=== PATIENT | female | born 1985 | race African-American/Black ===

== ENCOUNTER 2019-07-12 14:18 | Emergency (ER) | payer OTHER ==
[~2019-07-12] VITALS: Ht 162.6 cm; Wt 96.2 kg
[~2019-07-12 14:18] MED LIST: COMPAZINE10 MG PO; IBUPROFEN 600600 M1 PO; KEFLEX500 MG PO; NOHOMEMEDICATIONS; NORCO 5-325 TA1 EACH PO; PENICILLIN VK500 M1 PO; PHENERGAN 25 MG25 M1 PO; VALIUM2 MG PO
[2019-07-12 14:50] LABS: ABSOLUTE NEUTROPHILS 5.7 thou/uL (1.4-8.2); BASOPHILS 0.8 % (0.0-2.0); EOSINOPHILS 1.5 % (0.0-3.0); HEMOGLOBIN 12.4 gm/dL (12.0-15.0); LYMPHOCYTES 38.6 % (24.0-44.0); MCHC 32.7 g/dL (28.0-37.0); MCV 88.7 fL (80.0-100.0); MONOCYTES 9.1 % (1.0-8.0); PLATELET COUNT 296 thou/uL (150-400); RBC 4.28 mil/uL (4.20-5.00); RDW 14.8 % (10.5-14.5); WBC 11.3 thou/uL (4.0-11.0)
[2019-07-12 14:56] LABS: CALCIUM 9.4 mg/dL (8.5-10.1); CREATININE 0.9 mg/dL (0.6-1.0); POTASSIUM 3.7 mmol/L (3.5-5.1)
[2019-07-12 15:02] LABS: ALBUMIN 3.7 g/dL (3.4-5.0); TOTAL BILIRUBIN 0.5 mg/dL (<0.1-1.0); TOTAL PROTEIN 7.3 g/dL (6.4-8.2)
[2019-07-12] MEDS ORDERED: CLOTRIMAZOLE 1%15 G1 TOP (16:28)
[2019-07-12] MEDS ORDERED: BUTALB-APAP-CA1 EACH PO (16:28)
[2019-07-12 16:31] VITALS: BP 98/54
== END 2019-07-12 16:31 | disposition home or self-care (01) ==
LOC: ER 14:18
PROVIDERS: Emergency Medicine
DX: G43.909 Migraine, unspecified, not intractable, without status migrainosus (principal); B35.4 Tinea corporis; F17.210 Nicotine dependence, cigarettes, uncomplicated

== ENCOUNTER 2020-06-04 15:32 | Emergency (ER) | payer OTHER ==
[~2020-06-04] VITALS: Ht 162.6 cm; Wt 97.5 kg
[~2020-06-04 15:32] MED LIST changes: +BUTALB-APAP-CA1 EACH PO; +CLOTRIMAZOLE 1%15 G1 TOP
[2020-06-04 16:29] VITALS: BP 114/70
[2020-06-04] MEDS ORDERED: CICLOPIROX6.6 ML TOP ×2 (16:48→16:51)
== END 2020-06-04 16:29 | disposition home or self-care (01) ==
LOC: ER 15:32
DX: B35.1 Tinea unguium (principal); F17.210 Nicotine dependence, cigarettes, uncomplicated; Z20.828 Contact with and (suspected) exposure to other viral communicable diseases; Z79.899 Other long term (current) drug therapy